=== PATIENT | male | born 1965 | race Caucasian/White ===

== ENCOUNTER → 2019-06-13 | Outpatient (CLI) | payer BC ==
[2019-06-13 19:57] LABS: APPEARANCE, URINE CLEAR (CLEAR); BACTERIA, URINE AUTO NEGATIVE (NEGATIVE); BILIRUBIN, URINE AUTO NEGATIVE (NEGATIVE); BLOOD, URINE BLOOD NEGATIVE (NEGATIVE); COLOR, URINE YELLOW (YELLOW); GLUCOSE, URINE (UA) AUTO NEGATIVE (NEGATIVE); KETONE, URINE AUTO NEGATIVE (NEGATIVE); LEUKOCYTE ESTERASE, URINE AUTO NEGATIVE (NEGATIVE); MUCUS, URINE SMALL (NEGATIVE); NITRITE, URINE AUTO NEGATIVE (NEGATIVE); PROTEIN, URINE AUTO NEGATIVE (NEGATIVE); RBC, URINE AUTO 0 /HPF (0-3); SPECIFIC GRAVITY URINE AUTO 1.017 (1.002-1.035); SQUAMOUS EPITHELIAL CELL UR AU 0 /HPF (0-6); UROBILINOGEN, URINE AUTO 0.2 mg/dL (0.0-2.0); WBC, URINE AUTO 0 /HPF (0-3)
--- NOTE | 2019-06-14 07:24 | REP ---
KUB ABDOMEN/PELVIS: KUB film of abdomen/pelvis is performed. A single slightly dilated small bowel loop in the left upper quadrant is of doubtful significance. A calcific density projects over the lower right renal shadow compatible with a renal calculus 8 mm in diameter. Small calcific density in the right lower pelvis and left lower pelvis probably represent phleboliths. There are minor degenerative changes of the spine. Electronically Signed by Dread Liz MD 06/15/2019 10:08 A
== END ==
LOC: M SMT 13:31
PROVIDERS: ATTEND Urology
DX: N20.0 Calculus of kidney (principal)

== ENCOUNTER 2019-07-28 06:09 | Day surgery (SDC) | payer BC ==
[~2019-07-28] VITALS: Ht 172.7 cm; Wt 114.8 kg
[~2019-07-28 06:09] MED LIST: LISI10TA4 PO; LR 1,000 ML IV ONE; OMEP-221 PO; ceFAZolin SOD 2 GM in IV 1 EA IV ONE
[2019-07-28] MEDS ORDERED: fentaNYL 100 MCG/2 ML INJECTION (J3010) As Ordered ONE ×2 (07:07→08:26)
[2019-07-28] MEDS ORDERED: MIDAZOLAM INJ 2 MG/2 ML VIAL (J2250) As Ordered ONE (07:07)
[2019-07-28] MEDS ORDERED: PROPOFOL 200 MG/20 ML VIAL As Ordered ONE (07:08)
[2019-07-28] MEDS ORDERED: LIDOCAINE 2% INJ 100 MG/5 ML SDV (FOR ANES.) As Ordered ONE (07:08)
[2019-07-28] MEDS ORDERED: ONDANSETRON 4MG/2ML VIAL (J2405) As Ordered ONE (07:10)
--- NOTE | 2019-07-28 07:42 | REP ---
Clinical: Kidney stone. Technique: Single supine view of the abdomen and pelvis. Findings: There is a 5 mm calculus overlying the right kidney mid pole region. Further evaluation of the urinary tract system is limited due to technique and overlying bowel gas. No bowel obstruction. No organomegaly. Skeletal structures are intact. Phleboliths noted in the pelvis. Impression: Presumed 5 mm nonobstructing right renal calculus Electronically Signed by Khalif Velazquez MD 07/28/2019 07:33 A
[2019-07-28] MEDS: fentaNYL 100 MCG/2 ML INJECTION (J3010) IV PRN ×4 (08:29→08:45)
[2019-07-28] MEDS ORDERED: ONDANSETRON 4MG/2ML VIAL (J2405) IV PRN (08:45)
[2019-07-28] MEDS ORDERED: PERCOCET 5MG/325MG TAB PO PRN ×2 (08:45)
[2019-07-28] MEDS ORDERED: LR 1,000 ML IV SCH (08:45)
[2019-07-28] MEDS: PERCOCET 5MG/325MG TAB PO PRN ×2 (08:51→09:28)
[2019-07-28 09:05] VITALS: BP 119/77
--- NOTE | 2019-07-28 10:57 | RO ---
DATE OF PROCEDURE: 07/28/2019 PREPROCEDURE DIAGNOSIS: Right kidney stone. POSTPROCEDURE DIAGNOSIS: Right kidney stone. PROCEDURE: Right extracorporeal shock wave lithotripsy. SURGEON: Dr. Gelacio Carolina MARKET DEVELOPMENT EXECUTIVE: None. ANESTHESIA: Monitored anesthesia care (MAC). OPERATIVE INDICATIONS: This is a 54-year-old male who was found to have a 4-mm nonobstructing right kidney stone. He is brought to the operating room today for the above-listed procedure. DESCRIPTION OF PROCEDURE: The patient brought to the operating room, and MAC anesthesia was administered. Prophylactic antibiotics were infused. He was then placed in supine position in preparation for a right-sided extracorporeal shock wave lithotripsy. Fluoroscopy was utilized to monitor stone position and fragmentation of the procedure. Shock waves were then delivered to the right-sided kidney stone ungated. There were no arrhythmias. The stone did appear to fragment well. After 2500 shocks, the procedure was concluded. The patient was then awakened from anesthesia and transported to the recovery room in stable condition. ESTIMATED BLOOD LOSS: 0 mL. COMPLICATIONS: None. SPECIMENS: None. PLAN: The patient will followup in clinic in a few weeks with imaging prior to assess for residual stone burden.
== END 2019-07-28 09:34 | disposition home or self-care (01) ==
LOC: M SDC 06:09
PROVIDERS: ATTEND Urology
DX: N20.0 Calculus of kidney (principal); I10 Essential (primary) hypertension; K21.9 Gastro-esophageal reflux disease without esophagitis; G47.30 Sleep apnea, unspecified; Z79.899 Other long term (current) drug therapy
CPT/HCPCS: 50590; 74018; J0690; J2250; J2405; J3010

== ENCOUNTER 2019-08-03 19:56 | Day surgery (SDC) | payer BC ==
[2019-08-03 19:45] VITALS: BP 155/91
[~2019-08-03 19:56] MED LIST changes: +ACETAMINOPHEN TAB 650MG DOSE (2X325MG) PO PRN; +KETOROLAC 30 MG/ML VIAL (J1885) IV PRN; -LR 1,000 ML IV ONE; +PERCOCET 5MG/325MG TAB PO PRN; -ceFAZolin SOD 2 GM in IV 1 EA IV ONE
[2019-08-03] MEDS: DOCUSATE SODIUM 100 MG CAP PO SCH (20:44)
[2019-08-03] MEDS ORDERED: OXYC1TAB23 PO (20:44)
[2019-08-03] MEDS: MORPHINE 2 MG/ML 1ML VIAL (J2270) IV PRN (20:45)
[2019-08-03] MEDS ORDERED: FLOM0.4C39 PO (20:45)
[2019-08-03] MEDS: ONDANSETRON 4MG/2ML VIAL (J2405) IV PRN (20:45)
[2019-08-04] VITALS (7 sets, daily range): BP systolic 136–157; BP diastolic 76–94
[2019-08-04] MEDS: ONDANSETRON 4MG/2ML VIAL (J2405) IV PRN (00:52)
[2019-08-04] MEDS: MORPHINE 2 MG/ML 1ML VIAL (J2270) IV PRN ×2 (00:52→04:45)
[2019-08-04] MEDS: NS 1,000 ML IV SCH ×2 (00:52→19:42)
--- NOTE | 2019-08-04 08:36 | SMCUROLCON ---
Urology Consultation General Date of Consultation 08/04/19 Reason For Consultation This patient is seen for Kidney Stones. History of Present Illness This is a 54 y/o M transferred in from [facility] ER for an obstructing 8mm mid right ureteral stone and intractable pain. He is s/p a right ESWL on 07/28/19 and he notes he had been doing well until yesterday morning when he developed severe right flank pain and n/v. CT A/P at [facility] was notable for the obstructing right ureteral stone. He denies dysuria. He denies f/c. He notes that his pain sti ll comes and goes and is controlled w/ morphine at this time. His nausea is better. Past Medical History Medical History kidney stone Surgical Hstory right ESWL Medications Current Medications Current Medications Medications (Trade) Dose Ordered Sig/Zaid Route PRN Reason Start Time Stop Time Status Last Admin Dose Admin Acetaminophen (Tylenol Tab) 650 mg Q4HP PRN PO MILD PAIN or TEMP > 101 08/03/19 18:30 Docusate Sodium (Colace) 100 mg BID PO 08/03/19 21:00 Home Med (Med Rec Complete!) ASDIRECTED XX 08/03/19 21:00 08/03/19 20:48 DC Ketorolac Tromethamine (ToRADol) 15 mg Q6HP PRN IV MILD/MODERATE PAIN (PS 1-7) 08/03/19 18:30 08/08/19 18:29 Lisinopril (Prinivil) 10 mg DAILY PO 08/04/19 09:00 Morphine Sulfate (Morphine Sulfate Inj) 2 mg Q2H PRN IV BREAKTHROUGH PAIN 08/03/19 18:30 08/04/19 04:45 Omeprazole (PriLOSEC) 40 mg DAILY PO 08/04/19 09:00 Ondansetron HCl (ZOFRAN INJection) 4 mg Q6HP PRN IV NAUSEA OR VOMITING 08/03/19 18:30 08/04/19 00:52 Oxycodone/ Acetaminophen (Percocet 5mg/ 325mg Tablet) 2 tab Q4HP PRN PO SEVERE PAIN (PS 8-10) 08/03/19 18:30 08/04/19 06:46 Sodium Chloride 1,000 ml @ 50 mls/hr Q20H IV 08/04/19 00:00 08/04/19 00:52 Allergies Allergies: Coded Allergies: No Known Allergies (Unverified , 07/14/19) Review of Systems General: Reports: Normal Appetite; Denies: Fatigue, Malaise Constitutional: Denies: Fever, Chills, Sweats, Weakness, Malaise Skin: Denies: Rash, Lesions, Breakdown, Nail Changes Pulmonary: Denies: Dyspnea, Cough Cardiovascular: Denies Chest Pain, Denies Palpitations Gastrointestinal: Reports: Nausea, Vomiting Genitourinary: Denies: Dysuria, Frequency, Incontinence, Hematuria Musculoskeletal: Reports: Back Pain (right flank pain) Neurological: Denies: Weakness, Numbness, Incoordination, Change in Speech Psych: Reports: Mood Normal; Denies: Anxiety, Depression Physical Examination General Exam: Alert, No Acute Distress Chest Exam: Clear to auscultation Heart Exam: Rate Normal, Regular Rhythm Abdomen Exam: Soft Skin Exam: Nl turgor and temperature Neuro Exam: Normal Speech Psych Exam: Mental status NL Vital Signs/I&O Vital Signs Date Time Temp Pulse Resp B/P (MAP) Pulse Ox O2 Delivery O2 Flow Rate FiO2 08/04/19 06:46 18 08/04/19 06:00 98.5 77 139/88 (105) 93 Room Air I&O- Last 24 Hours up to 6 AM 08/04/19 06:00 Intake Total 0 ml Output Total 300 ml Balance -300 ml Assessment This is a 54 y/o M w/ an 8mm obstructing mid right ureteral stone w/ intractable pain. His UA appears negative for infection. I recommended that we take him to the OR today for cystoscopy, right ureteroscopy w/ laser lithotripsy, and pos sible right ureteral stent placement. After a discussion of the risks and benefits of the procedure, informed consent was signed. Plan - toradol, perocet, morphine prn pain - zofran prn nausea - IVF - NPO - plan OR early afternoon and then likely discharge home after BROOKE HOWARD MD Aug 04, 2019 08:36
[2019-08-04] MEDS: OMEPRAZOLE 20 MG CAP PO SCH (09:00)
[2019-08-04] MEDS: LISINOPRIL 10 MG TAB PO SCH ×2 (09:00→20:03)
[2019-08-04] MEDS: DOCUSATE SODIUM 100 MG CAP PO SCH ×2 (11:04→20:03)
[2019-08-04] MEDS ORDERED: ROCURONIUM BROMIDE 50 MG/5 ML VIAL As Ordered ONE (12:37)
[2019-08-04] MEDS ORDERED: LIDOCAINE 2% INJ 100 MG/5 ML SDV (FOR ANES.) As Ordered ONE (12:37)
[2019-08-04] MEDS ORDERED: ONDANSETRON 4MG/2ML VIAL (J2405) As Ordered ONE (12:37)
[2019-08-04] MEDS ORDERED: PROPOFOL 200 MG/20 ML VIAL As Ordered ONE (12:37)
[2019-08-04] MEDS ORDERED: dexameTHASONE 4 MG/ML 1ML VIAL (J1100) As Ordered ONE (12:38)
[2019-08-04] MEDS ORDERED: fentaNYL 250 MCG/5 ML INJECTION (J3010) As Ordered ONE (12:38)
[2019-08-04] MEDS ORDERED: MIDAZOLAM INJ 2 MG/2 ML VIAL (J2250) As Ordered ONE (12:38)
[2019-08-04] MEDS ORDERED: ceFAZolin SOD 2 GM in IV 1 EA IV ONE (13:15)
[2019-08-04] MEDS ORDERED: CONRAY-60 60% 50ML VIAL (Q9961) As Ordered ONE (13:40)
[2019-08-04] MEDS ORDERED: ceFAZolin 1GM INJ (J0690 PER 500MG) As Ordered ONE (14:06)
--- NOTE | 2019-08-04 17:21 | REP ---
Clinical: Retrograde pyelogram. Technique: Intraoperative fluoroscopic images Findings: Multiple images demonstrate the patient to be status post right ureteral stent placement in satisfactory position. Total fluoroscopic time 1 minute 52 seconds (12.5 mGy) Impression: Status post right ureteral stent placement. Electronically Signed by Khalif Velazquez MD 08/04/2019 05:13 P
[2019-08-04] MEDS ORDERED: PERCOCET 5MG/325MG TAB As Ordered ONE ×2 (17:59→18:48)
[2019-08-04] MEDS ORDERED: fentaNYL 100 MCG/2 ML INJECTION (J3010) As Ordered ONE (18:00)
[2019-08-04] MEDS ORDERED: oxyBUTYnin 5 MG TAB PO PRN (18:00)
[2019-08-04] MEDS: fentaNYL 100 MCG/2 ML INJECTION (J3010) IV PRN ×4 (18:07→18:20)
[2019-08-04] MEDS: PERCOCET 5MG/325MG TAB PO PRN ×2 (18:10→18:49)
[2019-08-04] MEDS: oxyBUTYnin 5 MG TAB PO PRN (18:18)
[2019-08-04] MEDS ORDERED: OXYB5TAB10 PO (18:21)
[2019-08-04] MEDS ORDERED: CIPR-249 PO (18:21)
[2019-08-04] MEDS ORDERED: HYDROMORPHONE HCL 0.5 MG/ 0.5 ML SYRINGE (J1170 PER 1) IV PRN (18:30)
[2019-08-04] MEDS ORDERED: LR 1,000 ML IV SCH (18:30)
[2019-08-04] MEDS ORDERED: ONDANSETRON 4MG/2ML VIAL (J2405) IV PRN (18:30)
[2019-08-05] VITALS (7 sets, daily range): BP systolic 112–174; BP diastolic 59–94
[2019-08-05] MEDS: oxyBUTYnin 5 MG TAB PO PRN (05:13)
[2019-08-05] MEDS: PERCOCET 5MG/325MG TAB PO PRN ×3 (05:13→15:45)
[2019-08-05] MEDS: OMEPRAZOLE 20 MG CAP PO SCH (08:30)
[2019-08-05] MEDS: DOCUSATE SODIUM 100 MG CAP PO SCH (08:31)
[2019-08-05] MEDS: LISINOPRIL 10 MG TAB PO SCH (09:00)
[2019-08-05] MEDS ORDERED: MOM 30ML SUSPENSION UDC PO ONE ×3 (10:15→15:00)
--- NOTE | 2019-08-05 12:46 | IPNPDOC ---
Text Note Date of Service The patient was seen on 08/05/19. NOTE Tong is doing well today except he feels constipated and has some abdominal pressure. He feels some discomfort from the stent and the Flor and it sounds like he is having occasional bladder spasms. His severe pain is gone. His Flor has been draining well overnight without any clots. Physical exam: He is alert and oriented 3. He has no significant CVA tenderness. His abdomen is slightly distended and hard and some diffuse tenderness but no overt rebound or guarding. His Flor is draining light pink urine. His extremities show no cyanosis clubbing or edema. Impression: -Postop day #1 right ureteroscopy and laser lithotripsy for an 8 mm mid right stone now with the stent in place status post a right ESWL 07/28/19 -Urethral irritation from the surgical procedure now requiring a Flor catheter -Abdominal distention this morning secondary to constipation Plan: -Treat his constipation today and if he is able to move his bowels and feels better discharge home later with the Flor catheter to gravity drainage with f ollow-up for Dr. Carolina for a voiding trial and also for cystoscopy and stent removal in the future VS,Fishbone, I+O VS, Fishbone, I+O Vital Signs Date Time Temp Pulse Resp B/P (MAP) Pulse Ox O2 Delivery O2 Flow Rate FiO2 08/05/19 11:30 18 08/05/19 10:00 98.1 67 139/89 (106) 97 Room Air 08/04/19 18:45 2 I&O- Last 24 Hours up to 6 AM 08/05/19 06:00 Intake Total 3440 ml Output Total 1600 ml Balance 1840 ml SHIRA MOORE MD Aug 05, 2019 12:46
--- NOTE | 2019-08-05 13:42 | RO ---
DATE OF PROCEDURE: 08/04/2019 PREPROCEDURE DIAGNOSIS: Right ureteral stone. POSTPROCEDURE DIAGNOSES: Right ureteral stone, benign prostatic hyperplasia. PROCEDURE: Cystoscopy, right ureteroscopy with laser lithotripsy and basket extraction of stones, right ureteral balloon dilation, right retrograde pyelogram with intraoperative interpretation of images, right ureteral stent placement. SURGEON: Gelacio Carolina MD SHOP REPAIRER: None. ANESTHESIA: General. OPERATIVE INDICATIONS: This is a 54-year-old male who underwent a right extracorporeal shock wave lithotripsy last week. Yesterday he had acute onset right flank pain and was found to have an obstructing 8 mm right ureteral stone. Due to intractable pain, he was brought to the operating room today for treatment. DESCRIPTION OF PROCEDURE: The patient was brought to the operating room and general anesthesia was induced. Prophylactic antibiotics were infused. He was then placed in dorsal lithotomy position, and prepped and draped in the usual sterile fashion. At this point, I inserted a rigid cystoscope into the urethral meatus and advanced it towards the bladder. Of note, the patient had an extremely high riding prostate and despite trying several times, I could not get the rigid cystoscope into the bladder over the prostate. I tried several times and noted this caused mild trauma to his prostatic urethra. Ultimately, it was necessary for me to advance a flexible cystoscope in instead. It took a while for me to identify the right ureteral orifice using the flexible cystoscope due to prostatic bleeding, but ultimately I was able to identify it and advance a wire up the right collecting system. I then advanced the ureteral access sheath into the right collecting system and it only went up into the distal ureter due to the narrowing of the ureter. I also could not get the flexible ureteroscope past this area. I therefore used a balloon dilator to dilate this narrowing of the ureter to 12 Danish. Once that was done, I went back in with the ureteroscope and I was able to get into the proximal ureter. Within the midureter, the 8 mm stone was seen. The stone was then fragmented into smaller pieces using 272 micron laser fiber. All the fragments were then removed using a basket. I then examined the more proximal ureter and the kidney and no additional stones were seen. A retrograde pyelogram was performed and notable for mild right hydronephrosis with no extravasation. I then withdrew the ureteroscope along with the access sheath and once again, no additional stones were seen within the ureter. I then utilized the wire to advance a 6 Danish by 22-32 cm JJ ureteral stent up into the right collecting system. The wire was removed and there were adequate curls of the stent in the right renal pelvis and in the bladder. I then went back in the bladder with a flexible ureteroscope and advanced a Guidewire into the bladder. I then utilized this wire to advance an 18 [place] tip catheter into the bladder. The balloon was filled with 10 mL of sterile water and then the wire was removed. The catheter was connected to gravity drainage and this marked conclusion of the procedure. The patient was taken out of dorsal lithotomy position, awakened from anesthesia and transferred to the recovery room in stable condition. ESTIMATED BLOOD LOSS: 15 mL. COMPLICATIONS: None. SPECIMENS: Kidney stone fragments. PLAN: The patient will be discharged home with the catheter in place. I have him followup next week for catheter removal and voiding trial. We will take the stent out within the next 1-2 weeks. CAREY
[2019-08-05] MEDS: NS 1,000 ML IV SCH (16:04)
--- NOTE | 2019-08-11 14:18 | DSES ---
DATE OF ADMISSION: 08/03/2019 DATE OF DISCHARGE: 08/05/2019 ADMISSION DIAGNOSIS: Right ureteral stone. DISCHARGE DIAGNOSES: Right ureteral stone, benign prostatic hyperplasia. ADMITTING PHYSICIAN: Dr. Gelacio Carolina DISCHARGING PHYSICIAN: Dr. Ivett Navarrete PROCEDURES PERFORMED: Cystoscopy, right ureteroscopy, laser lithotripsy and basket extraction of stones, right ureteral balloon dilation, right ureteral stent placement on 08/04/2019. HISTORY OF PRESENT ILLNESS: This is a 54-year-old male who underwent a right extracorporeal shock wave lithotripsy a few weeks ago and started having acute onset flank pain on 08/03/2019. A CAT scan was obtained notable for an 8 mm obstructing right ureteral stone. Due to intractable pain, he was admitted on 08/03/2019 and then taken to the operating room on 08/04/2019. HOSPITALIZATION COURSE: The patient was admitted to the hospital 08/03/2019 for pain control. He was taken to the operating room on 08/04/2019 for the above procedure. Of note, his procedure was complicated by a very large prostate, which made it very difficult to access his right ureteral orifice. We were ultimately able to access through the orifice and treat the stone. Because of the large prostate, patient had a moderate amount of hematuria afterwards and, therefore, a catheter was left in place. Due to the amount of hematuria postoperatively, he was kept overnight until 08/05/2019. On 08/05/2019 his pain was better controlled and hematuria was starting to clear up. He was sent for discharge home with the catheter in place with the plan to followup in clinic in about 1 week for catheter removal and voiding trial. He will then followup in clinic a few weeks later for stent removal.
[2019-08-13 14:26] LABS: Ca Ox Monohydrate 95 % (.)
== END 2019-08-05 19:10 | disposition home or self-care (01) ==
LOC: M OPCLI5PR 19:56 → M MS5PR 19:57 → M OPCLI5PR 08-05 19:10
PROVIDERS: ATTEND Urology
DX: N20.1 Calculus of ureter (principal); N40.0 Benign prostatic hyperplasia without lower urinary tract symptoms; I10 Essential (primary) hypertension; G47.30 Sleep apnea, unspecified; Z79.899 Other long term (current) drug therapy
CPT/HCPCS: 52341; 52356; 74420; 82360; 88300; 96361; 96374; 96375; 96376; C1769; C1894; C2617; J0690; J1100; J1885; J2250; J2270; J2405; J3010; Q9961

== ENCOUNTER 2020-08-21 21:53 | Inpatient (IN) | payer BC, OTHER ==
[~2020-08-21] VITALS: Ht 172.7 cm; Wt 119.4 kg
[~2020-08-21 21:53] MED LIST changes: -ACETAMINOPHEN TAB 650MG DOSE (2X325MG) PO PRN; +CIPR-249 PO; +FLOM0.4C39 PO; -KETOROLAC 30 MG/ML VIAL (J1885) IV PRN; +OXYB5TAB10 PO; +OXYC1TAB23 PO; -PERCOCET 5MG/325MG TAB PO PRN
[2020-08-21 23:30] VITALS: BP 134/81
--- NOTE | 2020-08-21 23:43 | IPNPDOC ---
Text Note Date of Service The patient was seen on 08/21/20. ALEX CESAR MD Aug 21, 2020 23:43
--- NOTE | 2020-08-21 23:44 | HPEPDOC ---
[facility] Medical History & Physical Date of Admission Aug 21, 2020 Date of Service: Aug 21, 2020 Primary Care Physician: A Attending Physician: ALEX CESAR MD History and Physical CHIEF COMPLAINT: Left flank pain, dysuria HISTORY OF PRESENT ILLNESS: Patient is a 55-year-old male who presented to the hospital the evening of 08/21/20 following transfer from [facility] for suspected pyelonephritis. Patient originally presented to the emergency department of [facility] at approximately 1800, reporting a 24-hour history of left-sided flank pain radiating to the groin and new onset dysuria with subjective fevers and chills. Upon presentation, patient was tachycardic and febrile. CBC indicated a mildly elevated white count of 12.2 with neutrophilic predominance. H&H of 15.2/46.2. CMP showing electrolytes within normal limits, BUN/CR of 14/1.1. Lactic acid of 1.9 and negative troponin. EKG showing sinus tachycardia. A CT scan of the patient's abdomen and pelvis was ordered which did not demonstrate any chiquis hydronephrosis or obstructive nephrolithiasis but did indicate findings and may correlate with prostatitis. Patient was treated with Tylenol for his fever. He did receive a liter bolus. He was started on Rocephin, Flagyl. ED provider contacted urology and reported the patient's sudden onset of left groin and left flank pain with a history of right-sided nephrolithiasis. In turn was elevated given patient's comorbidities, fever and tachycardia. CT scan also demonstrated some evidence of possible prostatitis. Urology was agreeable to the transfer. Patient was subsequently accepted by covering hospitalist for admission. Patient was also given a single milligram of lorazepam for his anxiety prior to departure. Upon arrival to [facility], patient shared the above narrative, and reported continued left sided mid back pain which radiated anteriorly into his groin. He also continued to report urinary frequency and dysuria. No recent history of hematuria or obvious stone passing. Patient denied any other acute complaints. PAST MEDICAL HISTORY: Essential hypertension Gastroesophageal reflux disease Right-sided nephrolithiasis Obesity Sleep apnea, untreated PAST SURGICAL HISTORY: Tonsillectomy Cystoscopy, right ureteroscopy, laser lithotripsy and basket extraction of right nephrolithiasis Right ureteral balloon dilation, right ureteral stent placement on 08/04/19. SOCIAL HISTORY: Patient is , does live in [place], [place] with his and his children. 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 He admits to drinking 1 glass of wine per day. He is a former smoker, stating that he quit over 35 years ago. FAMILY HISTORY: Father: Urethral stricture, CVA, irritable bowel Mother: , CVA, irritable bowel Siblings: Brother with BPH, urinary obstruction, irritable bowel Children: Healthy ALLERGIES: Please see below. REVIEW OF SYSTEMS: CONSTITUTIONAL: Patient reports subjective fevers and chills beginning the morning of 08/21/20. He denies any recent changes in weight, fatigue or night sweats. HEENT: Denies headache, changes in vision, change in hearing or difficulty swallowing. CARDIOVASCULAR: Denies chest pain, palpitations RESPIRATORY: Denies shortness of breath, wheezing, cough, dyspnea on exertion GASTROINTESTINAL: Reports left sided back pain which radiates anteriorly toward the groin. GENITOURINARY: One day history of increasing dysuria and urinary frequency SKIN: Denies any skin rashes or skin changes PSYCHIATRIC: Patient admits to anxiety regarding his current medical condition. HOME MEDICATIONS: Please see below. PHYSICAL EXAMINATION: VITAL SIGNS: Please see below GENERAL APPEARANCE: Patient was interviewed and examined on the [facility] floor. Patient was found to be resting comfortably in his hospital bed in no acute distress. Patient is alert and oriented and nontoxic in appearance. He is well groomed, appearing stated age. Patient is able to answer questions regarding his medical history appropriately. HEENT: Normocephalic, atraumatic, EOMI, mucous membranes moist CARDIOVASCULAR: Regular rate and rhythm without any murmurs gallops or rubs. LUNGS: Clear to auscultation bilaterally without any wheezes rales or rhonchi, ABDOMEN: Obese, nontender, nondistended. No overlying skin changes. No masses palpable. GENITOURINARY: Unable to elicit significant CVA tenderness. exam is unremarkable. EXTREMITIES: No lower extremity edema noted. Posterior tibial and radial pulses 2+ bilaterally NEUROLOGICAL: He is able to ambulate about the hospital room. Moving all extremities equally bilaterally. PSYCHIATRIC: Mood and affect are appropriate given patient's current medical condition. LABORATORY DATA: See below. IMAGING: Chest x-ray performed at [facility] (08/21/20): No acute pulmonary disease. CT abdomen and pelvis performed at [facility] (08/21/20): There is no hydronephrosis or obstructive nephrolithiasis. Prominent and heterogeneous prostate elevates and volume averages at the floor of the urinary bladder. Correlate with prostate history/workup. There is hepatomegaly with fatty infiltration. MICROBIOLOGY: Please see below. ASSESSMENT: Patient is a 55-year-old male, presenting to [facility] via transfer from [facility] for suspected pyelonephritis and/or prostatitis. Patient does carry history of essential hypertension, GERD and obesity. Of note, patient was transferred to [facility] on 08/03/2019 for treatment and management of a right ureteral stone. During his hospital physician, patient underwent cystoscopy, right ureteroscopy, laser lithotripsy and basket extraction with right ureteral balloon dilation and right ureteral stent placement. Patient has a well- documented history of BPH and follows with urology on a annual basis. Patient states that he has remained symptom free until the evening prior to presentation where he began experiencing left sided mid back pain with radiation anteriorly towards his groin. The morning of presentation, patient began experiencing subjective fevers and chills. In the ED he was found to have a mild leukocytosis, to be tachycardic and febrile. Patient was again transferred to [facility] for further management and evaluation. PLAN: #Left-sided flank pain, possible pyelonephritis and/or prostatitis -Repeat CBC, CMP, blood/urine cultures, lactic acid. -Will continue patient's ceftriaxone. Tylenol for fever. -Given his tachycardia, patient will remain on telemetry. -Normal saline at a rate of 150 cc/hr, continue home Flomax. -Toradol for his pain, kidney function within normal limits. -Will also be given Phenazopyridine for dysuric symptoms. -Close monitoring of urinary output. -Consider repeat imaging. -Urology is aware of the case and will see the patient in the morning. #SIRS -Patient does meet SIRS criteria as he is febrile, tachycardic and does carry a slight elevation in his WBCs. -Patient is hemodynamically stable. Continue hydration as above with close monitoring of lactic acid. -Monitoring and treatment as above. #Essential Hypertension -Patient has remained normotensive. -Continue home Lisinopril #GERD -Patient reports talking omeprazole PRN -Denies currents symptoms #Obesity Complicating care Plan to obtain an A1c prior discharge #Obstructive sleep apnea Patient reports diagnosed with sleep apnea though he has never used his CPAP. PCP follow up on discharge CODE STATUS: Full code DVT PROPHYLAXIS: Lovenox DISPOSITION: Pending neurologic evaluation, anticipate greater than 2 nights Home Medications Scheduled Lisinopril (Lisinopril) 10 Mg Tablet, 10 MG PO DAILY Tamsulosin HCl (Flomax) 0.4 Mg Capsule, 0.4 MG PO QHS Scheduled PRN Omeprazole (Omeprazole) 10 Mg Capsule.dr, 10 MG PO DAILY PRN for ACID REFLUX Triamcinolone Acet (Triamcinolone Acetonide 0.1% Oint) 80 Gm Oint...g., 1 DOSE TOP DAILY PRN for ECZEMA Allergies Coded Allergies: No Known Allergies (Unverified , 07/14/19) A-FIB/CHADSVASC A-FIB History Current/History of A-Fib/PAF?: No GME ATTESTATION GME ATTESTATION My faculty preceptor for this patient encounter was physically present during the encounter and was fully available. All aspects of the patient interview, examination, medical decision making process, and medical care plan development were reviewed and approved by the faculty preceptor. The faculty preceptor is aware and concurs with the plan as stated in the body of this note and will attest to such by his/her cosignature. ATTENDING NOTE Time of service 1159 I agree with the findings as documented by Mr. Cardoza is a 55 yr old w a hx of Nephrolithiasis, TAMIKO, HTN, GERD and obesity who presented to [facility] w c/o of flank pain f/c and was diagnosed w sepsis pyelonephritis and possible prostatitis; transfer was re quested for Uro eval to r/o radiotranslucent stone or obstruction. Plan: c/w abx & f/u w Dr.Crane THACKER,AMAYA CABRAL Aug 21, 2020 23:44 ALEX CESAR MD Aug 22, 2020 04:53
[2020-08-22] MEDS ORDERED: TRIA1OI80 TOP
[2020-08-22] MEDS ORDERED: OMEP10CA78 PO
[2020-08-22] MEDS ORDERED: ONDANSETRON 4MG/2ML VIAL IV PRN (00:15)
[2020-08-22] MEDS: TAMSULOSIN 0.4 MG CAP PO SCH ×2 (00:46→20:53)
[2020-08-22] MEDS: KETOROLAC 30 MG/ML 1ML VIAL IV PRN ×4 (00:46→22:03)
[2020-08-22] MEDS: ACETAMINOPHEN TAB 650MG DOSE (2X325MG) PO PRN (00:46)
[2020-08-22] MEDS: NS 1,000 ML IV SCH ×4 (00:47→23:10)
[2020-08-22 00:49] LABS: HEMATOCRIT 44.8 % (42.0-52.0); HEMOGLOBIN 14.5 g/dl (13.5-17.5); MEAN CORPUSCULAR HEMOGLOBIN 27.6 pg (27.0-33.0); MEAN CORPUSCULAR HGB CONC 32.4 g/dl (32.0-36.5); MEAN CORPUSCULAR VOLUME 85.2 fl (80.0-96.0); PLATELET COUNT, AUTOMATED 155 10^3/uL (150-450); RED BLOOD COUNT 5.26 10^6/uL (4.30-6.10); WHITE BLOOD COUNT 16.1 10^3/uL (4.0-10.0)
[2020-08-22 01:01] LABS: INR 1.11; PROTHROMBIN TIME 14.5 SECONDS (12.5-14.3)
[2020-08-22 01:19] LABS: ALBUMIN 3.6 GM/DL (3.2-5.2); ALT/SGPT 31 U/L (12-78); BILIRUBIN,TOTAL 0.7 MG/DL (0.2-1.0); BLOOD UREA NITROGEN 13 MG/DL (7-18); CALCIUM LEVEL 8.9 MG/DL (8.5-10.1); CARBON DIOXIDE LEVEL 23 MEQ/L (21-32); CHLORIDE LEVEL 108 MEQ/L (98-107); CREATININE FOR GFR 1.12 MG/DL (0.70-1.30); GLOMERULAR FILTRATION RATE > 60.0 (>56); GLUCOSE, FASTING 111 MG/DL (70-100); SODIUM LEVEL 137 MEQ/L (136-145); TOTAL PROTEIN 7.1 GM/DL (6.4-8.2)
[2020-08-22] MEDS: PHENAZOPYRIDINE 100 MG TAB PO SCH ×4 (02:17→20:53)
[2020-08-22 06:00] VITALS: BP 108/75
[2020-08-22] MEDS: lisinopriL 10 MG TAB PO SCH (09:18)
[2020-08-22] MEDS: ENOXAPARIN 40MG/0.4ML SYRINGE (J1650 PER 10MG) SC SCH (09:19)
[2020-08-22 10:44] LABS: GLUCOSE, URINE (UA) MANUAL OBSCURED mg/dL (NEGATIVE); KETONE, URINE MANUAL OBSCURED mg/dL (NEGATIVE)
[2020-08-22 10:45] LABS: BILIRUBIN, URINE MANUAL OBSCURED (NEGATIVE); UROBILINOGEN, URINE MANUAL OBSCURED mg/dl (NORMAL)
[2020-08-22 10:57] LABS: SQUAMOUS EPITHELIAL CELL URINE SMALL AMOUNT /hpf (SMALL AMT); TRANSITIONAL EPI CELLS, URINE SMALL AMOUNT /hpf
[2020-08-22 10:58] LABS: BACTERIA, URINE MOD AMOUNT
[2020-08-22 14:00] VITALS: BP 120/81
--- NOTE | 2020-08-22 15:46 | IPNPDOC ---
Date Seen The patient was seen on 08/22/20. Progress Note SUBJECTIVE: Tachycardic this AM, febrile overnight at 101F. UA +, BCx and Ucx pending but on Ceftriaxone. Urology to see today. Complains of diarrhea 2 BM today. Monitoring. Denies chest pain, shortness of breath but looks uncomfortable in bed. OBJECTIVE: PHYSICAL EXAM: VITAL SIGNS: Please see below GENERAL APPEARANCE: Appears uncomfortable but laying in bed, AAOx3 HEENT: Normocephalic, atraumatic, EOMI, mucous membranes moist CARDIOVASCULAR: S1S2, no M/R/G LUNGS: CTAB, no W/R/R ABDOMEN: Obese, nontender, nondistended. No overlying skin changes. No masses palpable. GENITOURINARY: Unable to elicit significant CVA tenderness. exam is unremarkable. EXTREMITIES: No lower extremity edema noted. Posterior tibial and radial pulses 2+ bilaterally NEUROLOGICAL:CN 2-12 intact, no focal deficits. PSYCHIATRIC: Mood and affect are appropriate given patient's current medical condition. LABORATORY DATA: See below. MICROBIOLOGY: UA +---> UCx pending BCx x 2 sets: pending IMAGING: Chest x-ray performed at [facility] (08/21/20): No acute pulmonary disease. CT abdomen and pelvis performed at [facility] (08/21/20): There is no hydronephrosis or obstructive nephrolithiasis. Prominent and heterogeneous prostate elevates and volume averages at the floor of the urinary bladder. Correlate with prostate history/workup. There is hepatomegaly with fatty infiltration. ASSESSMENT: Patient is a 55-year-old male, presenting to [facility] via transfer from [facility] for suspected pyelonephritis and/or prostatitis. Patient does carry history of essential hypertension, GERD and obesity. Of note, patient was transferred to [facility] on 08/03/2019 for treatment and management of a right ureteral stone. During his hospital physician, patient underwent cystoscopy, right ureteroscopy, laser lithotripsy and basket extraction with right ureteral balloon dilation and right ureteral stent placement. Patient has a well- documented history of BPH and follows with urology on a annual basis. Patient states that he has remained symptom free until the evening prior to presentation where he began experiencing left sided mid back pain with radiation anteriorly towards his groin. The morning of presentation, patient began experiencing subjective fevers and chills. In the ED he was found to have a mild leukocytosis, to be tachycardic and febrile. Patient was again transferred to [facility] for further management and evaluation. PLAN: #UTI, sepsis, r/o acute pyelonephritis and prostatitis as concern as well -WBC 16K, f/u repeat labs today -UA +, UCx pending -BCx pending -Afebrile today but 101 F overnight -C/w Ceftriaxone, toradol, tylenol, NSS -F/u urology recommendations #Diarrhea, acute -2 episodes this AM per patient -No documented by nursing thus far -Could be 2/2 to acute infection. No recent use of abx, hospitalizations prior to this one -C/w abx, hydration and monitor for worsening s/s. if persists consider C .diff PCR #Essential Hypertension -Continue home Lisinopril #GERD -Denies symptoms. #Obesity -Complicating care -Plan to obtain an A1c prior discharge #Obstructive sleep apnea Patient reports diagnosed with sleep apnea though he has never used his CPAP. PCP follow up on discharge #DVT px -Enoxaparin DISPOSITION: F/u urology recommendations. C/w treatment above. Plan is d/c home when medically improved. VS, I&O, 24H, Fishbone Vital Signs/I&O Vital Signs Date Time Temp Pulse Resp B/P (MAP) Pulse Ox O2 Delivery O2 Flow Rate FiO2 08/22/20 14:00 98.8 96 16 120/81 (94) 97 Room Air I&O- Last 24 Hours up to 6 AM 08/22/20 06:00 Intake Total 300 ml Output Total 450 ml Balance -150 ml Laboratory Data 24H LABS Laboratory Tests 2 08/22/20 00:42: Nucleated Red Blood Cells % (auto) 0.0, Prothrombin Time 14.5H, Prothromb Time International Ratio 1.11, Anion Gap 6L, Glomerular Filtration Rate > 60.0, Lactic Acid Level 1.7, Calcium Level 8.9, Total Bilirubin 0.7, Aspartate Amino Transf (AST/SGOT) 17, Alanine Aminotransferase (ALT/SGPT) 31, Alkaline Phosphatase 61, Total Protein 7.1, Albumin 3.6, Albumin/Globulin Ratio 1.0 08/22/20 10:26: Urine Color (MARTIN) ORANGEH, Urine Appearance (MARTIN) HAZYH, Urine pH (MARTIN) OBSCUREDH, Urine Specific [place] (MARTIN) 1.013, Bedside Urine Glucose (UA) OBSCUREDH, Bedside Urine Ketones (LAB) OBSCUREDH, Bedside Urine Blood OBSCUREDH, Bedside Urine Nitrite (LAB) OBSCUREDH, Bedside Urine Bilirubin (LAB) OBSCUREDH, Bedside Urine Urobilinogen (LAB) OBSCUREDH, Bedside Urine Leukocyte Esterase (L OBSCUREDH, Urine Sediment Examination PERFORMED, Urine RBC 1-3, Urine WBC 30- 40H, Urine Squamous Epithelial Cells SMALL AMOUNT, Urine Transitional Epithelial Cells SMALL AMOUNTH, Urine Bacteria MOD AMOUNTH, Urine Hyaline Casts CBC/BMP Laboratory Tests 08/22/20 00:42 Microbiology Microbiology 08/22/20 Urine Culture, Received Pending 08/22/20 Blood Culture, Received Pending 08/22/20 Blood Culture, Received Pending Current Medications Current Medications Medications (Trade) Dose Ordered Sig/Zaid Route PRN Reason Start Time Stop Time Status Last Admin Dose Admin Acetaminophen (Tylenol Tab) 650 mg Q4H PRN PO PAIN 1-4 OR FEVER 08/22/20 00:15 08/22/20 00:46 Ceftriaxone Sodium 1 gm/ Dextrose 50 ml @ 100 mls/hr Q24H IV 08/22/20 18:00 Enoxaparin Sodium (Lovenox) 40 mg DAILY SC 08/22/20 09:00 08/22/20 09:19 Home Med (Med Rec Complete!) ASDIRECTED XX 08/22/20 00:00 08/22/20 00:02 DC Ketorolac Tromethamine (ToRADol) 30 mg Q6HP PRN IV MODERATE PAIN (PS 5-7) 08/22/20 00:15 08/27/20 00:14 08/22/20 09:20 Lisinopril (Prinivil) 10 mg DAILY PO 08/22/20 09:00 08/22/20 09:18 Miscellaneous (Unresolved Clarification Entry) SEE LABEL COMMENTS DAILY XX 08/22/20 09:00 08/22/20 04:04 DC Ondansetron HCl (ZOFRAN INJection) 4 mg Q6HP PRN IV NAUSEA OR VOMITING 08/22/20 00:15 Phenazopyridine HCl (Pyridium) 200 mg TID PO 08/21/20 21:00 08/23/20 16:01 08/22/20 09:18 Sodium Chloride 1,000 ml @ 150 mls/hr Q6H40M IV 08/22/20 00:09 08/22/20 15:00 Tamsulosin HCl (Flomax) 0.4 mg QHS PO 08/21/20 21:00 08/22/20 00:46 Allergies Coded Allergies: No Known Allergies (Unverified , 07/14/19) Betsey Ramos MD Aug 22, 2020 15:46
[2020-08-22 16:18] LABS: HEMATOCRIT 42.5 % (42.0-52.0); HEMOGLOBIN 14.2 g/dl (13.5-17.5); MEAN CORPUSCULAR HEMOGLOBIN 28.9 pg (27.0-33.0); MEAN CORPUSCULAR HGB CONC 33.4 g/dl (32.0-36.5); MEAN CORPUSCULAR VOLUME 86.4 fl (80.0-96.0); PLATELET COUNT, AUTOMATED 143 10^3/uL (150-450); RED BLOOD COUNT 4.92 10^6/uL (4.30-6.10); WHITE BLOOD COUNT 16.4 10^3/uL (4.0-10.0)
[2020-08-22 16:48] LABS: ALBUMIN 3.3 GM/DL (3.2-5.2); ALT/SGPT 25 U/L (12-78); BLOOD UREA NITROGEN 13 MG/DL (7-18); CALCIUM LEVEL 8.5 MG/DL (8.5-10.1); CARBON DIOXIDE LEVEL 26 MEQ/L (21-32); CHLORIDE LEVEL 108 MEQ/L (98-107); CREATININE FOR GFR 0.98 MG/DL (0.70-1.30); GLOMERULAR FILTRATION RATE > 60.0 (>56); GLUCOSE, FASTING 106 MG/DL (70-100); SODIUM LEVEL 140 MEQ/L (136-145); TOTAL PROTEIN 6.3 GM/DL (6.4-8.2)
[2020-08-22] MEDS ORDERED: cefTRIAXone SOD 1 GM in D5W MINI-BAG PLUS 50 ML IV SCH (18:00)
[2020-08-22] MEDS ORDERED: PREPARATION H OINTMENT (HEMORRHOID) TOP PRN (21:15)
[2020-08-22 22:00] VITALS: BP 124/81
[2020-08-23] MEDS: KETOROLAC 30 MG/ML 1ML VIAL IV PRN ×2 (04:11→10:35)
[2020-08-23 05:52] LABS: HEMATOCRIT 40.3 % (42.0-52.0); HEMOGLOBIN 12.8 g/dl (13.5-17.5); MEAN CORPUSCULAR HEMOGLOBIN 27.4 pg (27.0-33.0); MEAN CORPUSCULAR HGB CONC 31.8 g/dl (32.0-36.5); MEAN CORPUSCULAR VOLUME 86.3 fl (80.0-96.0); PLATELET COUNT, AUTOMATED 128 10^3/uL (150-450); RED BLOOD COUNT 4.67 10^6/uL (4.30-6.10); WHITE BLOOD COUNT 14.5 10^3/uL (4.0-10.0)
[2020-08-23 06:00] VITALS: BP 129/80
[2020-08-23 06:09] LABS: BLOOD UREA NITROGEN 11 MG/DL (7-18); CALCIUM LEVEL 8.3 MG/DL (8.5-10.1); CARBON DIOXIDE LEVEL 24 MEQ/L (21-32); CHLORIDE LEVEL 109 MEQ/L (98-107); CREATININE FOR GFR 0.87 MG/DL (0.70-1.30); GLOMERULAR FILTRATION RATE > 60.0 (>56); GLUCOSE, FASTING 99 MG/DL (70-100); POTASSIUM SERUM 3.8 MEQ/L (3.5-5.1); SODIUM LEVEL 138 MEQ/L (136-145)
[2020-08-23] MEDS: NS 1,000 ML IV SCH ×3 (07:12→22:36)
[2020-08-23] MEDS: lisinopriL 10 MG TAB PO SCH (08:53)
[2020-08-23] MEDS: ENOXAPARIN 40MG/0.4ML SYRINGE (J1650 PER 10MG) SC SCH (08:53)
[2020-08-23] MEDS: PHENAZOPYRIDINE 100 MG TAB PO SCH ×2 (08:53→15:08)
--- NOTE | 2020-08-23 09:41 | SMCUROLCON ---
Urology Consultation General Date of Consultation 08/23/20 Reason For Consultation This patient is seen for Pyeleonephritis. History of Present Illness This is a 55 y/o M w/ BPH and kidney stones, transferred from [facility] a few nights ago w/ concern for prostatitis. The patient notes that he started having LLQ discomfort Thursday evening. This worsened Thursday and progressed to fevers and chills. This prompted him to go to [facility] ER Thursday evening. While there urine was obtained that appeared positive for infection. A noncontrast CT A/P was also obtained which I reviewed. It was negative for hydro or nephrolithiasis. It was notable for an enlarged prostate. Given concern for possible pyelonephritis or prostatitis, he was transferred to [facility] for further care. He notes that all day yesterday he was having urinary frequency and dysuria. This improved w/ placement of a 16Fr coude catheter yesterday evening. Since then he has been feeling better w/ the exception of rectal pressure which is constant. He denies fevers or chills o/n. The LLQ discomfort has resolved. Past Medical History Medical History see HPI Surgical Hstory ESWL Ureteroscopy Medications Current Medications Current Medications Medications (Trade) Dose Ordered Sig/Zaid Route PRN Reason Start Time Stop Time Status Last Admin Dose Admin Acetaminophen (Tylenol Tab) 650 mg Q4H PRN PO PAIN 1-4 OR FEVER 08/22/20 00:15 08/22/20 00:46 Ceftriaxone Sodium 1 gm/ Dextrose 50 ml @ 100 mls/hr Q24H IV 08/22/20 18:00 08/22/20 18:38 Enoxaparin Sodium (Lovenox) 40 mg DAILY SC 08/22/20 09:00 08/23/20 08:53 Home Med (Med Rec Complete!) ASDIRECTED XX 08/22/20 00:00 08/22/20 00:02 DC Ketorolac Tromethamine (ToRADol) 30 mg Q6HP PRN IV MODERATE PAIN (PS 5-7) 08/22/20 00:15 08/27/20 00:14 08/23/20 04:11 Lisinopril (Prinivil) 10 mg DAILY PO 08/22/20 09:00 08/23/20 08:53 Miscellaneous (Unresolved Clarification Entry) SEE LABEL COMMENTS DAILY XX 08/22/20 09:00 08/22/20 04:04 DC Ondansetron HCl (ZOFRAN INJection) 4 mg Q6HP PRN IV NAUSEA OR VOMITING 08/22/20 00:15 Phenazopyridine HCl (Pyridium) 200 mg TID PO 08/21/20 21:00 08/23/20 16:01 08/23/20 08:53 Phenyleph/Shark Oil/Min Oil/Petrol (Preparation H Ointment) apply as directed ... BIDP PRN TOP PAIN OR DISCOMFORT 08/22/20 21:15 Sodium Chloride 1,000 ml @ 125 mls/hr Q8H IV 08/22/20 00:09 08/23/20 07:12 Tamsulosin HCl (Flomax) 0.4 mg QHS PO 08/21/20 21:00 08/22/20 20:53 Allergies Allergies: Coded Allergies: No Known Allergies (Unverified , 07/14/19) Review of Systems Constitutional: Denies: Fever, Chills, Sweats Pulmonary: Denies: Dyspnea, Cough, Pleuritic Chest Pain, Other Symptoms Cardiovascular: Denies Chest Pain, Denies Palpitations, Denies Orthopnea, Denies Paroxysmal Noc. Dyspnea, Denies Edema, Denies Lt Headedness, Denies Other Symptoms Gastrointestinal: Reports: Abdominal Pain (improved) Genitourinary: Reports: Dysuria, Frequency, Retention Neurological: Denies: Weakness, Numbness, Incoordination, Change in Speech Psych: Reports: Mood Normal Physical Examination General Exam: Alert, Cooperative, No Acute Distress ENT EXAM: Atraumatic Chest Exam: Normal air movement Heart Exam: Rate Normal Abdomen Exam: Soft; No: Tenderness Male Exam catheter draining yellow urine Skin Exam: Nl turgor and temperature Neuro Exam: Normal Speech Psych Exam: Mental status NL, Mood NL Vital Signs/I&O Vital Signs Date Time Temp Pulse Resp B/P (MAP) Pulse Ox O2 Delivery O2 Flow Rate FiO2 08/23/20 08:53 143/81 08/23/20 06:00 99.5 102 17 92 Room Air I&O- Last 24 Hours up to 6 AM 08/23/20 06:00 Intake Total 3615 ml Output Total 2700 ml Balance 915 ml Laboratory Data 24H Labs Laboratory Tests 2 08/22/20 10:26: Urine Color (MARTIN) ORANGEH, Urine Appearance (MARTIN) HAZYH, Urine pH (MARTIN) OBSCUREDH, Urine Specific [place] (MARTIN) 1.013, Urine Protein OBSCUREDH, Bedside Urine Glucose (UA) OBSCUREDH, Bedside Urine Ketones (LAB) OBSCUREDH, Bedside Urine Blood OBSCUREDH, Bedside Urine Nitrite (LAB) OBSCUREDH, Bedside Urine Bilirubin (LAB) OBSCUREDH, Bedside Urine Urobilinogen (LAB) OBSCUREDH, Bedside Urine Leukocyte Esterase (L OBSCUREDH, Urine Sediment Examination PERFORMED, Urine RBC 1-3, Urine WBC 30-40H, Urine Squamous Epithelial Cells SMALL AMOUNT, Urine Transitional Epithelial Cells SMALL AMOUNTH, Urine Bacteria MOD AMOUNTH, Urine Hyaline Casts 08/22/20 15:57: Nucleated Red Blood Cells % (auto) 0.0, Anion Gap 6L, Glomerular Filtration Rate > 60.0, Calcium Level 8.5, Total Bilirubin 1.0, Aspartate Amino Transf (AST/SGOT) 14, Alanine Aminotransferase (ALT/SGPT) 25, Alkaline Phosphatase 55, Total Protein 6.3L, Albumin 3.3, Albumin/Globulin Ratio 1.1 08/23/20 05:35: Nucleated Red Blood Cells % (auto) 0.0, Anion Gap 5L, Glomerular Filtration Rate > 60.0, Calcium Level 8.3L CBC/BMP Laboratory Tests 08/22/20 15:57 08/23/20 05:35 Microbiology Microbiology 08/22/20 Urine Culture - Final, Complete 08/22/20 Blood Culture - Preliminary, Resulted No growth after 24 hours . All specim... 08/22/20 Blood Culture - Preliminary, Resulted No growth after 24 hours . All specim... Assessment This is a 55 y/o M transferred from [facility] for possible prostatitis. I do not think he has prostatitis. It appears that his problems are urinary retention 2/2 BPH and a UTI. Review of urine culture from [facility] on [facility] shows that he grew > 100,000 E coli susceptible to all antibiotics tested except ampicillin and unasyn. It is susceptible to rocephin, fluoroquinolones, and bactrim. His urine culture here has already come back negative after a few doses of rocephin. He feels better. I explained that he will need to be on antibiotics for at least 10 days and discharged home w/ the catheter as he will likely continue to have problems w/ retention. We will ultimately see him back in the office for catheter removal and cystoscopy. He noted understanding. Plan - recommend switching patient to PO cipro which he should be on for at least 10 days - continue flomax - agree w/ toradol for catheter discomfort - ok to discharge home w/ catheter - my office will arrange f/u in approximately 2 wks for catheter removal and cysto BROOKE HOWARD MD Aug 23, 2020 09:07
[2020-08-23 12:03] LABS: CLOSTRIDIUM DIFFICILE PCR NEGATIVE (NEGATIVE)
[2020-08-23 14:00] VITALS: BP 152/80
--- NOTE | 2020-08-23 14:56 | IPNPDOC ---
Date Seen The patient was seen on 08/23/20. Progress Note SUBJECTIVE: Tachycardic improved throughout the day. Afebrile overnight. UCx from [facility]: E. coli sensitive to Ceftriaxone, switching to PO Cipro per urology. UCx here neg. Per urology, c/w lopes catheter at discharge. States to have had 6 episodes of watery diarrhea over past 24 hrs, C. diff neg. Stopped IV ceftriaxone, started PO cipro, probiotic. Denies chest pain, shortness of breath but looks uncomfortable in bed. OBJECTIVE: PHYSICAL EXAM: VITAL SIGNS: Please see below GENERAL APPEARANCE: Appears uncomfortable, AAOx3 HEENT: Normocephalic, atraumatic, EOMI, mucous membranes moist CARDIOVASCULAR: S1S2, no M/R/G LUNGS: CTAB, no W/R/R ABDOMEN: Obese, nontender, nondistended. No overlying skin changes. No masses palpable. EXTREMITIES: No lower extremity edema noted. Posterior tibial and radial pulses 2+ bilaterally : Lopes catheter in place NEUROLOGICAL:CN 2-12 intact, no focal deficits. PSYCHIATRIC: Mood and affect are appropriate given patient's current medical condition. LABORATORY DATA: See below. MICROBIOLOGY: UCx from [facility]: E. coli UA +---> UCx NG this admission BCx x 2 sets: NG IMAGING: Chest x-ray performed at [facility] (08/21/20): No acute pulmonary disease. CT abdomen and pelvis performed at [facility] (08/21/20): There is no hydronephrosis or obstructive nephrolithiasis. Prominent and heterogeneous prostate elevates and volume averages at the floor of the urinary bladder. Correlate with prostate history/workup. There is hepatomegaly with fatty infiltration. ASSESSMENT: Patient is a 55-year-old male, presenting to [facility] via transfer from [facility] for suspected pyelonephritis and/or prostatitis. Patient does carry history of essential hypertension, GERD and obesity. Of note, patient was transferred to [facility] on 08/03/2019 for treatment and management of a right ureteral stone. During his hospital physician, patient underwent cystoscopy, right ureteroscopy, laser lithotripsy and basket extraction with right ureteral balloon dilation and right ureteral stent placement. Patient has a well-document ed history of BPH and follows with urology on a annual basis. Patient states that he has remained symptom free until the evening prior to presentation where he began experiencing left sided mid back pain with radiation anteriorly towards his groin. The morning of presentation, patient began experiencing subjective fevers and chills. In the ED he was found to have a mild leukocytosis, to be tachycardic and febrile. Patient was again transferred to [facility] for further management and evaluation. PLAN: #UTI likely 2/2 to urinary retention, enlarged prostate, resolved sepsis -WBC 14.5K, afebrile -UCx: E. coli from hospital he was transferred from -BCx: NG -Ceftriaxone d/james, started on PO cipro BID, probiotic, tylenol, NSS -Urology advised to keep lopes catheter, f/u in clinic o/p in two weeks after discharge. #Diarrhea, acute poss 2/2 to acute infection vs. medication induced -6 episodes over past 24 hours, patient uncomfortable with abd cramping -Watery, green in color. -C. diff neg -Stopped IV ceftriaxone, c/w IVFs. #BPH, chronic -Lopes catheter in place and will be d/james with it -F/u with o/p urology #Essential Hypertension -C/w Lisinopril #Obesity -Complicating care #Obstructive sleep apnea Patient reports diagnosed with sleep apnea though he has never used his CPAP. PCP follow up on discharge #GERD -Started on PPI #DVT px -Enoxaparin DISPOSITION: Plan is d/c home when medically improved. VS, I&O, 24H, [facility] Vital Signs/I&O Vital Signs Date Time Temp Pulse Resp B/P (MAP) Pulse Ox O2 Delivery O2 Flow Rate FiO2 08/23/20 14:00 98.3 81 16 152/80 (104) 95 Room Air I&O- Last 24 Hours up to 6 AM 08/23/20 06:00 Intake Total 3615 ml Output Total 2700 ml Balance 915 ml Laboratory Data 24H LABS Laboratory Tests 2 08/22/20 15:57: Nucleated Red Blood Cells % (auto) 0.0, Anion Gap 6L, Glomerular Filtration Rate > 60.0, Calcium Level 8.5, Total Bilirubin 1.0, Aspartate Amino Transf (AST/SGOT) 14, Alanine Aminotransferase (ALT/SGPT) 25, Alkaline Phosphatase 55, Total Protein 6.3L, Albumin 3.3, Albumin/Globulin Ratio 1.1 08/23/20 05:35: Nucleated Red Blood Cells % (auto) 0.0, Anion Gap 5L, Glomerular Filtration Rate > 60.0, Calcium Level 8.3L 08/23/20 10:32: Clostridium difficile [id number] PRESUMPTIVE NEGATIVE, Clostridium difficile Toxin (PCR) NEGATIVE CBC/BMP Laboratory Tests 08/22/20 15:57 08/23/20 05:35 Microbiology Microbiology 08/22/20 Urine Culture - Final, Complete 08/22/20 Blood Culture - Preliminary, Resulted No growth after 24 hours . All specim... 08/22/20 Blood Culture - Preliminary, Resulted No growth after 24 hours . All specim... Current Medications Current Medications Medications (Trade) Dose Ordered Sig/Zaid Route PRN Reason Start Time Stop Time Status Last Admin Dose Admin Acetaminophen (Tylenol Tab) 650 mg Q4H PRN PO PAIN 1-4 OR FEVER 08/22/20 00:15 08/22/20 00:46 Ceftriaxone Sodium 1 gm/ Dextrose 50 ml @ 100 mls/hr Q24H IV 08/22/20 18:00 08/22/20 18:38 Enoxaparin Sodium (Lovenox) 40 mg DAILY SC 08/22/20 09:00 08/23/20 08:53 Home Med (Med Rec Complete!) ASDIRECTED XX 08/22/20 00:00 08/22/20 00:02 DC Ketorolac Tromethamine (ToRADol) 30 mg Q6HP PRN IV MODERATE PAIN (PS 5-7) 08/22/20 00:15 08/27/20 00:14 08/23/20 10:35 Lisinopril (Prinivil) 10 mg DAILY PO 08/22/20 09:00 08/23/20 08:53 Miscellaneous (Unresolved Clarification Entry) SEE LABEL COMMENTS DAILY XX 08/22/20 09:00 08/22/20 04:04 DC Ondansetron HCl (ZOFRAN INJection) 4 mg Q6HP PRN IV NAUSEA OR VOMITING 08/22/20 00:15 Phenazopyridine HCl (Pyridium) 200 mg TID PO 08/21/20 21:00 08/23/20 16:01 08/23/20 08:53 Phenyleph/Shark Oil/Min Oil/Petrol (Preparation H Ointment) apply as directed ... BIDP PRN TOP PAIN OR DISCOMFORT 08/22/20 21:15 Sodium Chloride 1,000 ml @ 125 mls/hr Q8H IV 08/22/20 00:09 08/23/20 14:36 Tamsulosin HCl (Flomax) 0.4 mg QHS PO 08/21/20 21:00 08/22/20 20:53 Allergies Coded Allergies: No Known Allergies (Unverified , 07/14/19) Betsey Ramos MD Aug 23, 2020 14:56
[2020-08-23] MEDS: PANTOPRAZOLE 40MG TAB (PROTONIX) PO SCH (15:08)
[2020-08-23] MEDS: CIPROFLOXACIN 500MG TABLET PO SCH (17:15)
[2020-08-23] MEDS: LACTOBACILLUS ACIDOPHILUS CAP (BACID) PO SCH (17:15)
[2020-08-23] MEDS: ACETAMINOPHEN TAB 650MG DOSE (2X325MG) PO PRN ×2 (18:20→22:29)
[2020-08-23] MEDS: TAMSULOSIN 0.4 MG CAP PO SCH (20:16)
[2020-08-23 22:00] VITALS: BP 145/80
[2020-08-24] MEDS: ACETAMINOPHEN TAB 650MG DOSE (2X325MG) PO PRN (05:10)
[2020-08-24] MEDS: CIPROFLOXACIN 500MG TABLET PO SCH (05:11)
[2020-08-24 05:52] LABS: HEMOGLOBIN 12.2 g/dl (13.5-17.5); MEAN CORPUSCULAR HEMOGLOBIN 28.1 pg (27.0-33.0); MEAN CORPUSCULAR HGB CONC 32.1 g/dl (32.0-36.5); MEAN CORPUSCULAR VOLUME 87.6 fl (80.0-96.0); PLATELET COUNT, AUTOMATED 129 10^3/uL (150-450); RED BLOOD COUNT 4.34 10^6/uL (4.30-6.10); WHITE BLOOD COUNT 11.5 10^3/uL (4.0-10.0)
[2020-08-24 06:00] VITALS: BP 144/81
[2020-08-24 06:16] LABS: BLOOD UREA NITROGEN 10 MG/DL (7-18); CALCIUM LEVEL 8.3 MG/DL (8.5-10.1); CARBON DIOXIDE LEVEL 24 MEQ/L (21-32); CHLORIDE LEVEL 111 MEQ/L (98-107); CREATININE FOR GFR 0.86 MG/DL (0.70-1.30); GLOMERULAR FILTRATION RATE > 60.0 (>56); GLUCOSE, FASTING 86 MG/DL (70-100); POTASSIUM SERUM 3.7 MEQ/L (3.5-5.1); SODIUM LEVEL 140 MEQ/L (136-145)
[2020-08-24] MEDS: NS 1,000 ML IV SCH (06:46)
[2020-08-24] MEDS ORDERED: RISATAB3 PO (07:59)
[2020-08-24] MEDS ORDERED: CIPR-249 PO (07:59)
[2020-08-24] MEDS: LACTOBACILLUS ACIDOPHILUS CAP (BACID) PO SCH (08:31)
[2020-08-24 08:33] VITALS: BP 141/81
[2020-08-24] MEDS: ENOXAPARIN 40MG/0.4ML SYRINGE (J1650 PER 10MG) SC SCH (08:33)
[2020-08-24] MEDS: PANTOPRAZOLE 40MG TAB (PROTONIX) PO SCH (08:33)
[2020-08-24] MEDS: lisinopriL 10 MG TAB PO SCH (08:33)
--- NOTE | 2020-08-24 16:04 | DS.PDOC ---
Discharge Summary General Date of Admission Aug 21, 2020 at 23:29 Date of Discharge 08/24/20 Discharge Summary HISTORY OF PRESENT ILLNESS: Patient is a 55-year-old male who presented to the hospital the evening of 08/21/20 following transfer from [facility] for suspected pyelonephritis. Patient originally presented to the emergency department of [facility] at approximately 1800, reporting a 24-hour history of left-sided flank pain radiating to the groin and new onset dysuria with subjective fevers and chills. Upon presentation, patient was tachycardic and febrile. CBC indicated a mildly elevated white count of 12.2 with neutrophilic predominance. H&H of 15.2/46.2. CMP showing electrolytes within normal limits, BUN/CR of 14/1.1. Lactic acid of 1.9 and negative troponin. EKG showing sinus tachycardia. A CT scan of the patient's abdomen and pelvis was ordered which did not demonstrate any chiquis hydronephrosis or obstructive nephrolithiasis but did indicate findings and may correlate with prostatitis. Patient was treated with Tylenol for his fever. He did receive a liter bolus. He was started on Rocephin, Flagyl. ED provider contacted urology and reported the patient's sudden onset of left groin and left flank pain with a history of right-sided nephrolithiasis. In turn was elevated given patient's comorbidities, fever and tachycardia. CT scan also demonstrated some evidence of possible prostatitis. Urology was agreeable to the transfer. Patient was subsequently accepted by covering hospitalist for admission. Patient was also given a single milligram of lorazepam for his anxiety prior to departure. Upon arrival to [facility], patient shared the above narrative, and reported continued left sided mid back pain which radiated anteriorly into his groin. He also continued to report urinary frequency and dysuria. No recent history of hematuria or obvious stone passing. Patient denied any other acute complaints. HOSPITAL COURSE: Patient was found to be retaining urine, lopes catheter was placed. WBC gradually improved on Ceftriaxone. Repeat UA came back neg, BCx NG. He complained of some diarrhea, C. diff neg. We stopped IV ceftriaxone and started PO ciprofloxacin which patient tolerated well. IVFS were continued until 08/06 , when patient stated diarrhea was much improved. Per urology, c/w lopes catheter at discharge, ciprofloxacin x 10 days and they will call to arrange follow up in their office in 2 weeks. By 08/24/20 patient was feeling much improved. He was discharged home in improved condition. At discharge he denied chest pain, shortness of breath PAST MEDICAL HISTORY: Essential hypertension Gastroesophageal reflux disease Right-sided nephrolithiasis Obesity Sleep apnea, untreated PAST SURGICAL HISTORY: Tonsillectomy Cystoscopy, right ureteroscopy, laser lithotripsy and basket extraction of right nephrolithiasis Right ureteral balloon dilation, right ureteral stent placement on 08/04/19. SOCIAL HISTORY: Patient is , does live in [place], [place] with his and his children. 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 He admits to drinking 1 glass of wine per day. He is a former smoker, stating that he quit over 35 years ago. FAMILY HISTORY: Father: Urethral stricture, CVA, irritable bowel Mother: , CVA, irritable bowel Siblings: Brother with BPH, urinary obstruction, irritable bowel Children: Healthy ALLERGIES: please see below DISCHARGE MEDS: Please see below PHYSICAL EXAM: VITAL SIGNS: Please see below GENERAL APPEARANCE: Resting in bed, NAD, AAOx3 HEENT: Normocephalic, atraumatic, EOMI, mucous membranes moist CARDIOVASCULAR: S1S2, no M/R/G LUNGS: CTAB, no W/R/R ABDOMEN: Obese, nontender, nondistended. No overlying skin changes. No masses palpable. EXTREMITIES: No lower extremity edema noted. Posterior tibial and radial pulses 2+ bilaterally : Lopes catheter in place NEUROLOGICAL:CN 2-12 intact, no focal deficits. PSYCHIATRIC: Mood and affect are appropriate LABORATORY DATA: See below. MICROBIOLOGY: UCx from [facility]: E. coli UA +---> UCx NG this admission BCx x 2 sets: NG IMAGING: Chest x-ray performed at [facility] (08/21/20): No acute pulmonary disease. CT abdomen and pelvis performed at [facility] (08/21/20): There is no hydronephrosis or obstructive nephrolithiasis. Prominent and heterogeneous prostate elevates and volume averages at the floor of the urinary bladder. Correlate with prostate history/workup. There is hepatomegaly with fatty infiltration. ASSESSMENT: Patient is a 55-year-old male, presenting to [facility] via transfer from [facility] for suspected pyelonephritis and/or prostatitis. Patient does carry history of essential hypertension, GERD and obesity. Of note, patient was transferred to [facility] on 08/03/2019 for treatment and management of a right ureteral stone. During his hospital physician, patient underwent cystoscopy, right ureteroscopy, laser lithotripsy and basket extraction with right ureteral balloon dilation and right ureteral stent placement. Patient has a well- documented history of BPH and follows with urology on a annual basis. Patient states that he has remained symptom free until the evening prior to presentation where he began experiencing left sided mid back pain with radiation anteriorly towards his groin. The morning of presentation, patient began experiencing subjective fevers and chills. In the ED he was found to have a mild leukocytosis, to be tachycardic and febrile. Patient was again transferred to [facility] for further management and evaluation. PLAN: #UTI likely 2/2 to urinary retention, enlarged prostate, resolved sepsis -WBC 11.5K, afebrile -UCx: E. coli from hospital he was transferred from -Repeat UCx here: NG -BCx: NG -C/w ciprofloxacin x 1o days -Urology advised to keep lopes catheter, f/u in clinic o/p in two weeks after d ischarge. #Diarrhea, acute and likely IV medication induced. Resolved. -Stopped IV ceftriaxone and diarrhea stopped -Encourage PO hydration Q2 hrs while awake #BPH, chronic -Lopes catheter in place and will be d/james with it -F/u with o/p urology #Essential Hypertension -C/w Lisinopril #Obesity -Complicating care #Obstructive sleep apnea Patient reports diagnosed with sleep apnea though he has never used his CPAP. PCP follow up on discharge DISPOSITION: Plan is d/c home today. Urology will call to schedule f/u appointment as o/p. TIME SPENT ON DISCHARGE: Greater than 30 minutes. Vital Signs/I&Os Vital Signs Date Time Temp Pulse Resp B/P (MAP) Pulse Ox O2 Delivery O2 Flow Rate FiO2 08/24/20 08:33 141/81 08/24/20 06:00 98.0 75 20 97 Room Air I&O- Last 24 Hours up to 6 AM 08/24/20 06:00 Intake Total 4350 ml Output Total 4000 ml Balance 350 ml Laboratory Data Labs 24H Laboratory Tests 2 08/24/20 05:35: Nucleated Red Blood Cells % (auto) 0.0, Anion Gap 5L, Glomerular Filtration Rate > 60.0, Calcium Level 8.3L CBC/BMP Laboratory Tests 08/24/20 05:35 Microbiology Microbiology 08/22/20 Urine Culture - Final, Complete 08/22/20 Blood Culture - Preliminary, Resulted No Growth after 48 hours. All Specime... 08/22/20 Blood Culture - Preliminary, Resulted No Growth after 48 hours. All Specime... Discharge Medications Scheduled Ciprofloxacin HCl (Cipro) 500 Mg Tablet, 500 MG PO BID@,18 L.acidoph/L.bulg/B.bif/S.therm (Jessica-Bid Caplet) 1 Each Tablet, 1 EA PO BIDWM Lisinopril (Lisinopril) 10 Mg Tablet, 10 MG PO DAILY, (Reported) Tamsulosin HCl (Flomax) 0.4 Mg Capsule, 0.4 MG PO QHS, (Reported) Scheduled PRN Omeprazole (Omeprazole) 10 Mg Capsule.dr, 10 MG PO DAILY PRN for ACID REFLUX, (Reported) Triamcinolone Acet (Triamcinolone Acetonide 0.1% Oint) 80 Gm Oint...g., 1 DOSE TOP DAILY PRN for ECZEMA, (Reported) Allergies Coded Allergies: No Known Allergies (Unverified , 07/14/19) Betsey Ramos MD Aug 24, 2020 16:04
== END 2020-08-24 11:08 | disposition home or self-care (01) | DRG 720 ==
LOC: M MSPAV 23:29
PROVIDERS: ADMIT Internal Medicine; ATTEND Internal Medicine
DX: A41.9 Sepsis, unspecified organism (principal); K52.1 Toxic gastroenteritis and colitis; I10 Essential (primary) hypertension; K21.9 Gastro-esophageal reflux disease without esophagitis; E66.9 Obesity, unspecified; B96.20 Unspecified Escherichia coli [E. coli] as the cause of diseases classified elsewhere; N40.1 Benign prostatic hyperplasia with lower urinary tract symptoms; G47.33 Obstructive sleep apnea (adult) (pediatric); Z87.891 Personal history of nicotine dependence; Z79.899 Other long term (current) drug therapy; Z68.39 Body mass index [BMI] 39.0-39.9, adult; R33.9 Retention of urine, unspecified; T36.1X5A Adverse effect of cephalosporins and other beta-lactam antibiotics, initial encounter

== ENCOUNTER → 2020-09-15 | Outpatient (CLI) | payer OTHER, BC ==
[~2020-09-15] MED LIST changes: +OMEP10CA78 PO; +RISATAB3 PO; +TRIA1OI80 TOP
== END ==
LOC: M LABSMTC 08:43
PROVIDERS: ATTEND Anesthesiology
DX: Z01.818 Encounter for other preprocedural examination (principal); Z20.828 Contact with and (suspected) exposure to other viral communicable diseases

== ENCOUNTER 2020-09-20 08:23 | Day surgery (SDC) | payer OTHER ==
[~2020-09-20] VITALS: Ht 172.7 cm; Wt 111.6 kg
[~2020-09-20 08:23] MED LIST changes: +LR 1,000 ML IV ONE
[2020-09-20] MEDS ORDERED: ALPR0.25 PO (08:34)
[2020-09-20] MEDS ORDERED: MIDAZOLAM INJ 2MG/2ML VIAL (J2250 PER 1MG) As Ordered ONE (09:05)
[2020-09-20] MEDS ORDERED: LIDOCAINE 2% 100MG/5ML SDV (FOR ANES.) As Ordered ONE (09:05)
[2020-09-20] MEDS ORDERED: fentaNYL 250 MCG/5 ML INJECTION (J3010) As Ordered ONE (09:05)
[2020-09-20] MEDS ORDERED: dexameTHASONE 4 MG/ML 1ML VIAL (J1100 PER 1MG) As Ordered ONE (09:05)
[2020-09-20] MEDS ORDERED: propofoL 200 MG/20 ML VIAL As Ordered ONE (09:05)
[2020-09-20] MEDS ORDERED: ROCURONIUM BROMIDE 50 MG/5 ML VIAL As Ordered ONE (09:05)
[2020-09-20] MEDS ORDERED: ONDANSETRON 4MG/2ML VIAL As Ordered ONE (09:05)
[2020-09-20] MEDS ORDERED: ceFAZolin SOD 2 GM in IV 1 EA IV ONE (09:30)
[2020-09-20] MEDS ORDERED: fentaNYL 100 MCG/2 ML INJECTION (J3010) As Ordered ONE ×3 (09:52→11:57)
[2020-09-20] MEDS ORDERED: SUGAMMADEX SODIUM 500 MG/5 ML VIAL (BRIDION) As Ordered ONE (09:53)
[2020-09-20] MEDS ORDERED: LABETALOL 100MG/20ML VIAL As Ordered ONE (10:10)
[2020-09-20] MEDS ORDERED: FUROSEMIDE 100MG/10ML VIAL (J1940) As Ordered ONE (10:59)
[2020-09-20] MEDS ORDERED: CIPR-249 PO (11:40)
[2020-09-20] MEDS: PERCOCET 5MG/325MG TAB PO PRN ×2 (11:57→12:46)
[2020-09-20] MEDS: fentaNYL 100 MCG/2 ML INJECTION (J3010) IV PRN ×4 (11:57→12:15)
[2020-09-20] MEDS ORDERED: PERCOCET 5MG/325MG TAB As Ordered ONE (11:57)
[2020-09-20] MEDS ORDERED: ACETAMINOPHEN TAB 650MG DOSE (2X325MG) PO PRN (12:15)
[2020-09-20] MEDS ORDERED: LR 1,000 ML IV SCH (12:15)
[2020-09-20] MEDS ORDERED: METOCLOPRAMIDE INJ 10MG/2ML VIAL (J2765 PER 1) IV PRN (12:15)
[2020-09-20] MEDS ORDERED: ONDANSETRON 4MG/2ML VIAL IV PRN (12:15)
--- NOTE | 2020-09-20 12:18 | ROOPDOC ---
[facility] Report Of Operation Report of Operation DATE OF PROCEDURE: 09/20/20 PREPROCEDURE DIAGNOSIS: Benign prostatic hyperplasia with urinary retention. POSTPROCEDURE DIAGNOSIS: Benign prostatic hyperplasia with urinary retention. PROCEDURE: Cystoscopy, button transurethral electrovaporization of the prostate. SURGEON: Brooke Howard MD HVAC REFRIGERATION TECHNICIAN: None. ANESTHESIA: General. OPERATIVE INDICATIONS: This is a 55-year-old male with benign prostatic hyperplasia and urinary retention who was brought to the operating room today for treatment. DESCRIPTION OF PROCEDURE: The patient was brought to the operating room and general anesthesia was induced. Prophylactic antibiotics were infused. He was placed in the dorsal lithotomy position and prepped and draped in the usual sterile fashion. At this point, I advanced the resectoscope into the urethra and into the bladder. Of note, the patient had a very high-riding bladder neck. I made note of the location of both ureteral orifices, as well as the verumontanum. At this point, I began vaporizing hyperplastic tissue circumferentially on the bladder neck. I then vaporized hyperplastic tissue on both lateral lobes. I kept doing this until there was a clear channel established. Throughout the procedure I made sure not to vaporize close to the ureteral orifices or distal to the verumontanum. Once there was a clear channel established, hemostasis was obtained using the coagulation current. Once satisfied with hemostasis, the resectoscope was removed and an 18- Telugu Coude catheter was inserted into the bladder. The balloon was filled with 15 mL of sterile water and then the catheter was connected to gravity drainage. This marked the conclusion of the procedure. The patient was taken out of the dorsal lithotomy position, awakened from anesthesia and transported to the recovery room in stable condition. Estimated blood loss: 20 mL. Complications: None. Specimens: None. PLAN: The patient will followup in the clinic in approximately 1 week for catheter removal and a voiding trial. BROOKE HOWARD MD Sep 20, 2020 12:17
[2020-09-20] MEDS ORDERED: oxyBUTYnin 5 MG TAB As Ordered ONE (13:20)
[2020-09-20] MEDS ORDERED: OXYB5TAB10 PO (13:22)
[2020-09-20] MEDS ORDERED: oxyBUTYnin 5 MG TAB PO ONE (13:45)
[2020-09-20] MEDS ORDERED: KETOROLAC 30 MG/ML 1ML VIAL As Ordered ONE (13:46)
[2020-09-20] MEDS ORDERED: KETOROLAC 30 MG/ML 1ML VIAL IV ONE (14:00)
[2020-09-20 15:00] VITALS: BP 137/86
== END 2020-09-20 15:10 | disposition home or self-care (01) ==
LOC: M SDC 08:23
PROVIDERS: ATTEND Urology
DX: N40.1 Benign prostatic hyperplasia with lower urinary tract symptoms (principal); R33.9 Retention of urine, unspecified; I10 Essential (primary) hypertension; F41.9 Anxiety disorder, unspecified; K21.9 Gastro-esophageal reflux disease without esophagitis; K44.9 Diaphragmatic hernia without obstruction or gangrene; M12.9 Arthropathy, unspecified; R06.83 Snoring; Z79.899 Other long term (current) drug therapy; Z87.891 Personal history of nicotine dependence
CPT/HCPCS: 52601; J1100; J1885; J1940; J2250; J2405; J2765; J3010

== ENCOUNTER → 2020-10-29 | Outpatient (REF) | payer OTHER, BC ==
[~2020-10-29] MED LIST changes: +ALPR0.25 PO; +LISI10TA22 PO; -LISI10TA4 PO; -LR 1,000 ML IV ONE
[2020-10-29 14:17] LABS: APPEARANCE, URINE HAZY (CLEAR); BACTERIA, URINE AUTO 1+ (NEGATIVE); BILIRUBIN, URINE AUTO NEGATIVE (NEGATIVE); BLOOD, URINE BLOOD 3+ (NEGATIVE); COLOR, URINE YELLOW (YELLOW); GLUCOSE, URINE (UA) AUTO NEGATIVE (NEGATIVE); KETONE, URINE AUTO NEGATIVE (NEGATIVE); LEUKOCYTE ESTERASE, URINE AUTO 3+ (NEGATIVE); MUCUS, URINE SMALL (NEGATIVE); NITRITE, URINE AUTO NEGATIVE (NEGATIVE); PROTEIN, URINE AUTO 1+ mg/dL (NEGATIVE); RBC, URINE AUTO 102 /HPF (0-3); SPECIFIC GRAVITY URINE AUTO 1.018 (1.002-1.035); SQUAMOUS EPITHELIAL CELL UR AU 1 /HPF (0-6); UROBILINOGEN, URINE AUTO 0.2 mg/dL (0.0-2.0); WBC, URINE AUTO 122 /HPF (0-3)
== END ==
LOC: M SMT 13:22
PROVIDERS: ATTEND Nurse Practitioner Family
DX: N40.1 Benign prostatic hyperplasia with lower urinary tract symptoms (principal)

== ENCOUNTER → 2022-01-31 | Outpatient (REF) | payer OTHER, BC ==
[~2022-01-31] MED LIST changes: -OMEP-221 PO; -OMEP10CA78 PO; +OMEP1CAP71 PO; +OMEP40CA5 PO
[2022-01-31 15:13] LABS: APPEARANCE, URINE CLOUDY (CLEAR); BACTERIA, URINE AUTO NEGATIVE (NEGATIVE); BILIRUBIN, URINE AUTO NEGATIVE (NEGATIVE); BLOOD, URINE BLOOD NEGATIVE (NEGATIVE); COLOR, URINE AMBER (YELLOW); GLUCOSE, URINE (UA) AUTO NEGATIVE (NEGATIVE); KETONE, URINE AUTO NEGATIVE (NEGATIVE); LEUKOCYTE ESTERASE, URINE AUTO NEGATIVE (NEGATIVE); MUCUS, URINE SMALL (NEGATIVE); NITRITE, URINE AUTO NEGATIVE (NEGATIVE); PROTEIN, URINE AUTO NEGATIVE (NEGATIVE); RBC, URINE AUTO 0 /HPF (0-3); SPECIFIC GRAVITY URINE AUTO 1.017 (1.002-1.035); SQUAMOUS EPITHELIAL CELL UR AU 1 /HPF (0-6); UROBILINOGEN, URINE AUTO 0.2 mg/dL (0.0-2.0); WBC, URINE AUTO 1 /HPF (0-3)
== END ==
LOC: M SMT 14:56
PROVIDERS: ATTEND Urology
DX: N20.0 Calculus of kidney (principal)

== ENCOUNTER 2022-12-02 07:02 | Day surgery (SDC) | payer BC, OTHER ==
[~2022-12-02] VITALS: Ht 172.7 cm; Wt 117.5 kg
[~2022-12-02 07:02] MED LIST changes: +BSS IRR 500ML/OMIDRIA 4ML IRR BAG (OR ONLY) As Ordered ONE; +CEFUROXIME 1MG/0.1ML INTRACAMERAL INJ As Ordered ONE; +CYCLOPENTOLATE 1% OPHTH SOLN 2ML BTL OS SCH; +LIDOCAINE 1% SDV 5ML VIAL As Ordered ONE; +OFLOXACIN 0.3 % (OCUFLOX) OPTH SOL 5ML OS SCH; +PHENYLEPHRINE 2.5% OPHTH SOL 2ML OS SCH; +PROPARACAINE 0.5% OPHTH SOL 15ML OS ONE; +TROPICAMIDE 1% OPHTH SOLN 15ML OS SCH; +VENTAER INH
[2022-12-02] MEDS ORDERED: MIDAZOLAM INJ 2MG/2ML VIAL As Ordered ONE (09:40)
[2022-12-02] MEDS ORDERED: fentaNYL 100 MCG/2 ML INJECTION As Ordered ONE (09:40)
[2022-12-02] MEDS ORDERED: propofoL 200 MG/20 ML VIAL As Ordered ONE ×2 (09:47→10:20)
[2022-12-02] MEDS ORDERED: POVIDONE-IODINE 5% OPHTH PREP SOL 30ML As Ordered ONE (10:21)
[2022-12-02 10:37] VITALS: BP 153/75
== END 2022-12-02 11:03 | disposition home or self-care (01) ==
LOC: M SDC 07:02
PROVIDERS: ATTEND Ophthalmology
DX: H25.12 Age-related nuclear cataract, left eye (principal); I10 Essential (primary) hypertension; K21.9 Gastro-esophageal reflux disease without esophagitis; Z79.899 Other long term (current) drug therapy; Z79.51 Long term (current) use of inhaled steroids; F41.9 Anxiety disorder, unspecified; N40.0 Benign prostatic hyperplasia without lower urinary tract symptoms
CPT/HCPCS: 66984; J0697; J1097; J2250; J3010

== ENCOUNTER → 2023-01-26 | Outpatient (REF) | payer OTHER ==
[~2023-01-26] MED LIST changes: -BSS IRR 500ML/OMIDRIA 4ML IRR BAG (OR ONLY) As Ordered ONE; -CEFUROXIME 1MG/0.1ML INTRACAMERAL INJ As Ordered ONE; -CYCLOPENTOLATE 1% OPHTH SOLN 2ML BTL OS SCH; -LIDOCAINE 1% SDV 5ML VIAL As Ordered ONE; -OFLOXACIN 0.3 % (OCUFLOX) OPTH SOL 5ML OS SCH; -PHENYLEPHRINE 2.5% OPHTH SOL 2ML OS SCH; -PROPARACAINE 0.5% OPHTH SOL 15ML OS ONE; -TROPICAMIDE 1% OPHTH SOLN 15ML OS SCH
[2023-01-26 13:41] LABS: APPEARANCE, URINE CLEAR (CLEAR); BACTERIA, URINE AUTO NEGATIVE (NEGATIVE); BILIRUBIN, URINE AUTO NEGATIVE (NEGATIVE); BLOOD, URINE BLOOD NEGATIVE (NEGATIVE); COLOR, URINE YELLOW (YELLOW); GLUCOSE, URINE (UA) AUTO NEGATIVE (NEGATIVE); KETONE, URINE AUTO NEGATIVE (NEGATIVE); LEUKOCYTE ESTERASE, URINE AUTO NEGATIVE (NEGATIVE); MUCUS, URINE SMALL (NEGATIVE); NITRITE, URINE AUTO NEGATIVE (NEGATIVE); PROTEIN, URINE AUTO NEGATIVE (NEGATIVE); RBC, URINE AUTO 0 /HPF (0-3); SPECIFIC GRAVITY URINE AUTO 1.017 (1.002-1.035); SQUAMOUS EPITHELIAL CELL UR AU 1 /HPF (0-6); UROBILINOGEN, URINE AUTO 0.2 mg/dL (0.0-2.0); WBC, URINE AUTO 1 /HPF (0-3)
== END ==
LOC: M LAB REF 12:29
PROVIDERS: ATTEND Urology
DX: N40.0 Benign prostatic hyperplasia without lower urinary tract symptoms (principal)

== ENCOUNTER → 2024-02-02 | Outpatient (REF) | payer OTHER ==
[~2024-02-02] MED LIST changes: -OXYB5TAB10 PO; +OXYB5TAB14 PO
[2024-02-02 17:36] LABS: APPEARANCE, URINE CLEAR (CLEAR); BACTERIA, URINE AUTO NEGATIVE (NEGATIVE); BILIRUBIN, URINE AUTO NEGATIVE (NEGATIVE); BLOOD, URINE BLOOD NEGATIVE (NEGATIVE); COLOR, URINE YELLOW (YELLOW); GLUCOSE, URINE (UA) AUTO NEGATIVE (NEGATIVE); KETONE, URINE AUTO NEGATIVE (NEGATIVE); LEUKOCYTE ESTERASE, URINE AUTO NEGATIVE (NEGATIVE); MUCUS, URINE SMALL (NEGATIVE); NITRITE, URINE AUTO NEGATIVE (NEGATIVE); PROTEIN, URINE AUTO NEGATIVE (NEGATIVE); RBC, URINE AUTO 0 /HPF (0-3); SPECIFIC GRAVITY URINE AUTO 1.011 (1.002-1.035); SQUAMOUS EPITHELIAL CELL UR AU 1 /HPF (0-6); UROBILINOGEN, URINE AUTO 0.2 mg/dL (0.0-2.0); WBC, URINE AUTO 1 /HPF (0-3)
== END ==
LOC: M SMT 17:06
PROVIDERS: ATTEND Nurse Practitioner Family
DX: N41.9 Inflammatory disease of prostate, unspecified (principal)

== ENCOUNTER 2024-10-24 09:10 | Day surgery (SDC) | payer OTHER ==
[~2024-10-24] VITALS: Ht 172.7 cm; Wt 118.8 kg
[~2024-10-24 09:10] MED LIST changes: +FINA5TAB2 PO; +LR 1,000 ML IV SCH; +MIDAZOLAM INJ 2MG/2ML VIAL As Ordered ONE; +VALI5TAB PO; +fentaNYL 100 MCG/2 ML INJECTION As Ordered ONE
[2024-10-24] MEDS ORDERED: LORA1TAB23 PO (10:53)
[2024-10-24] MEDS: FLURBIPROFEN 0.03% OPHTH SOLN 2.5 ML OD SCH (11:00)
[2024-10-24] MEDS: CYCLOPENTOLATE 1% OPHTH SOLN 2ML BTL OD SCH (11:00)
[2024-10-24] MEDS: TETRACAINE 0.5% OPHTH SOLN 4ML OD SCH (11:00)
[2024-10-24] MEDS: PHENYLEPHRINE 2.5% OPHTH SOL 2ML OD SCH (11:00)
[2024-10-24] MEDS: LIDOCAINE 1% SDV 5ML VIAL As Ordered ONE (12:35)
[2024-10-24] MEDS: CEFUROXIME 1MG/0.1ML INTRACAMERAL INJ As Ordered ONE (12:35)
[2024-10-24 12:50] VITALS: BP 155/84; TEMP 97.6; O2SAT 96
== END 2024-10-24 13:20 | disposition home or self-care (01) ==
LOC: M SDC 09:10
PROVIDERS: ATTEND Ophthalmology
DX: H25.11 Age-related nuclear cataract, right eye (principal); I10 Essential (primary) hypertension; G47.33 Obstructive sleep apnea (adult) (pediatric); Z98.42 Cataract extraction status, left eye; K21.9 Gastro-esophageal reflux disease without esophagitis; R73.02 Impaired glucose tolerance (oral); N40.0 Benign prostatic hyperplasia without lower urinary tract symptoms; Z79.899 Other long term (current) drug therapy; F40.240 Claustrophobia; F41.9 Anxiety disorder, unspecified; Z90.79 Acquired absence of other genital organ(s)
CPT/HCPCS: 66984; J0697; J2250; J3010